=== PATIENT | female | born 1965 | race Caucasian/White ===

== ENCOUNTER 2018-05-29 15:08 | Emergency (ER) | payer BC ==
[~2018-05-29] VITALS: Ht 172.7 cm; Wt 92.7 kg
[~2018-05-29 15:08] MED LIST: BUSPIRONE HCL7.5 MG PO; DESERYL100 MG PO; LEVSIN/ANASP0.125 MG PO; PEPCID40 MG PO; PERMETHRIN60 GM TOPICAL; PHENERGAN25 M1 PO; PROTONIX40 MG PO; TENORMIN50 MG PO; ZITHROMAX250 MG PO
[2018-05-29 15:09] VITALS: Ht 172.7 cm; Wt 92.7 kg
[2018-05-29 15:42] LABS: APPEARANCE CLEAR (CLEAR); BILIRUBIN NEGATIVE (NEGATIVE); COLOR YELLOW (YELLOW); GLUCOSE NEGATIVE (NEGATIVE); KETONE NEGATIVE (NEGATIVE); NITRITE NEGATIVE (NEGATIVE); PROTEIN NEGATIVE (NEGATIVE); UROBILINOGEN NORMAL (NORMAL)
[2018-05-29 15:44] LABS: BACTERIA MODERATE /hpf (NONE SEEN); EPITHELIAL CELLS 0-5 /hpf (0-5); RED CELLS - URINE 0-5 /hpf (0-5); WHITE CELLS - URINE 0-5 /hpf (0-5)
[2018-05-29 15:54] LABS: BASOPHILS 0.4 % (0-2); EOSINOPHILS 1.6 % (0-7); HEMATOCRIT 36.7 % (36.0-48.0); HEMOGLOBIN 12.1 g/dL (12-16); IMMATURE GRANULOCYTES 0.3 % (0-5); LYMPHOCYTES 40.1 % (15-50); MCH 29.4 pg (26.0-34.0); MCV 89.3 fL (80.0-100.0); MEAN PLATELET VOLUME 9.2 fL (7.4-10.4); MONOCYTES 8.1 % (2-11); NEUTROPHILS 49.5 % (40-80); PLATELET COUNT 286 10x3/uL (130-400); RBC 4.11 10x6/uL (4.00-5.40); RDW 13.5 % (11.5-14.5); WBC 6.8 10x3/uL (4.8-10.8)
[2018-05-29 16:07] LABS: ALBUMIN 3.8 g/dL (3.4-5.0); ALKALINE PHOSPHATASE 83 U/L (46-116); ALT (SGPT) 30 U/L (10-68); AMYLASE - SERUM 88 U/L (25-115); CALC OSMOLALITY 288 mosm/kg (275-300); CALCIUM 8.8 mg/dL (8.5-10.1); CHLORIDE - SERUM 106 mmol/L (98-107); CREATININE - SERUM 0.7 mg/dL (0.6-1.3); GLUCOSE 96 mg/dL (74-106); LIPASE 239 U/L (73-393); POTASSIUM - SERUM 3.7 mmol/L (3.5-5.1); PROTEIN - SERUM 7.7 g/dL (6.4-8.2); SODIUM 144 mmol/L (136-145); UREA NITROGEN 19 mg/dL (7-18); eGFR NON AFRICAN AMERICAN > 90 mL/min (90-120)
[2018-05-29 19:47] VITALS: BP 144/85
== END 2018-05-29 19:48 | disposition home or self-care (01) ==
LOC: D.ER 15:08
PROVIDERS: Family Medicine
DX: R10.9 Unspecified abdominal pain (principal); N94.89 Other specified conditions associated with female genital organs and menstrual cycle

== ENCOUNTER → 2018-06-07 16:00 | Outpatient (CLI) | payer BC ==
[2018-05-29 15:09] VITALS: BMI 31.0
== END | disposition home or self-care (01) ==
LOC: D.US 16:00
DX: R10.11 Right upper quadrant pain (principal)

== ENCOUNTER → 2019-02-15 13:09 | Outpatient (CLI) | payer BC ==
[2018-05-29 15:09] VITALS: BMI 31.0
[2019-02-15 15:24] LABS: ALBUMIN 4.1 g/dL (3.4-5.0); ALKALINE PHOSPHATASE 103 U/L (46-116); ALT (SGPT) 47 U/L (10-68); BILIRUBIN - TOTAL 0.32 mg/dL (0.2-1.3); C-REACTIVE PROTEIN 0.5 mg/dL (0.0-0.9); CALC OSMOLALITY 289 mosm/kg (275-300); CALCIUM 9.1 mg/dL (8.5-10.1); CARBON DIOXIDE 33.1 mmol/L (21.0-32.0); CHLORIDE - SERUM 105 mmol/L (98-107); CREATININE - SERUM 0.7 mg/dL (0.6-1.3); GLUCOSE 91 mg/dL (74-106); PROTEIN - SERUM 8.2 g/dL (6.4-8.2); SODIUM 145 mmol/L (136-145); T4 THYROXINE 10.8 ug/dL (4.7-13.3); THYROID STIMULATING HORMONE 0.68 uIU/mL (0.36-3.74); UREA NITROGEN 16 mg/dL (7-18); eGFR NON AFRICAN AMERICAN > 90 mL/min (90-120)
[2019-02-15 15:44] LABS: ERYTHROCYTE SEDIMENTATION RATE 67 mm/hr (0-30)
[2019-02-16 09:10] LABS: ANTI-STREPTOLYSIN O 41.7 IU/mL (0.0-200.0)
[2019-02-16 13:10] LABS: ANA REFLEX - DIRECT Negative (Negative)
== END | disposition home or self-care (01) ==
LOC: D.LAB 13:09
PROVIDERS: ATTEND Family Medicine
DX: R07.9 Chest pain, unspecified (principal); M25.50 Pain in unspecified joint; R53.83 Other fatigue

== ENCOUNTER 2019-08-10 16:22 | Observation (INO) | payer BC ==
[~2019-08-10] VITALS: Ht 172.7 cm; Wt 97.7 kg
[2019-08-10 17:14] VITALS: BP 130/67
[2019-08-10 17:15] LABS: BILIRUBIN NEGATIVE (NEGATIVE); GLUCOSE NEGATIVE (NEGATIVE); KETONE NEGATIVE (NEGATIVE); NITRITE NEGATIVE (NEGATIVE); SPECIFIC GRAVITY 1.025 (1.005-1.020); UROBILINOGEN NORMAL (NORMAL)
[2019-08-10 17:19] LABS: BASOPHILS 0.3 % (0-2); HEMATOCRIT 37.9 % (36.0-48.0); HEMOGLOBIN 12.1 g/dL (12-16); IMMATURE GRANULOCYTES 0.1 % (0-5); LYMPHOCYTES 40.5 % (15-50); MCH 28.6 pg (26.0-34.0); MCHC 31.9 g/dL (31.0-37.0); MCV 89.6 fL (80.0-100.0); MEAN PLATELET VOLUME 8.9 fL (7.4-10.4); MONOCYTES 8.2 % (2-11); NEUTROPHILS 48.9 % (40-80); PLATELET COUNT 286 10x3/uL (130-400); RBC 4.23 10x6/uL (4.00-5.40); RDW 13.6 % (11.5-14.5)
[2019-08-10 17:59] LABS: ERYTHROCYTE SEDIMENTATION RATE 8 mm/hr (0-30)
[2019-08-10 18:24] LABS: CALC OSMOLALITY 286 mosm/kg (275-300); CALCIUM 8.9 mg/dL (8.5-10.1); CARBON DIOXIDE 26.4 mmol/L (21.0-32.0); CHLORIDE - SERUM 104 mmol/L (98-107); CREATININE - SERUM 0.8 mg/dL (0.6-1.3); GLUCOSE 132 mg/dL (74-106); POTASSIUM - SERUM 3.7 mmol/L (3.5-5.1); SODIUM 143 mmol/L (136-145); UREA NITROGEN 13 mg/dL (7-18); eGFR NON AFRICAN AMERICAN 79 mL/min (90-120)
[2019-08-10 18:26] VITALS: BP 126/75
[2019-08-10 18:31] LABS: ALBUMIN 3.9 g/dL (3.4-5.0); ALKALINE PHOSPHATASE 96 U/L (30-120); ALT (SGPT) 54 U/L (10-68); BILIRUBIN - TOTAL 0.32 mg/dL (0.2-1.3); PROTEIN - SERUM 7.9 g/dL (6.4-8.2)
[2019-08-10 18:42] LABS: C-REACTIVE PROTEIN 1.1 mg/dL (0.0-0.9); CKMB 0.5 U/L (0.0-3.6); CREATINE KINASE 64 UL (21-215); LIPASE 171 U/L (73-393); MAGNESIUM - SERUM 1.9 mg/dL (1.8-2.4); THYROID STIMULATING HORMONE 0.53 uIU/mL (0.36-3.74)
[2019-08-10 18:43] LABS: TROPONIN-I < 0.017 ng/mL (0.000-0.060)
--- NOTE | 2019-08-10 19:27 | NUR ---
REPORT TO JACOB LEPE
--- NOTE | 2019-08-10 19:30 | NUR ---
PT OBSERVED AMBULATING TO BR WITH STABLE GAIT. DENIES FURTHER NEEDS.
[2019-08-10 20:00] VITALS: BP 151/68
[2019-08-10 22:34] VITALS: Ht 172.7 cm; Wt 97.7 kg
[2019-08-11] VITALS: BP 122/59
[2019-08-11 04:00] VITALS: BP 109/44
--- NOTE | 2019-08-11 04:15 | NUR ---
RESTING WITH EYES CLOSED, RESPERATIONS EVEN, NO S/S DISTRESS NOTED.
[2019-08-11 05:57] LABS: BASOPHILS 0.5 % (0-2); EOSINOPHILS 2.6 % (0-7); HEMATOCRIT 37.4 % (36.0-48.0); HEMOGLOBIN 11.6 g/dL (12-16); LYMPHOCYTES 47.3 % (15-50); MCH 28.2 pg (26.0-34.0); MCV 90.8 fL (80.0-100.0); MEAN PLATELET VOLUME 9.2 fL (7.4-10.4); MONOCYTES 8.3 % (2-11); NEUTROPHILS 41.3 % (40-80); PLATELET COUNT 277 10x3/uL (130-400); RBC 4.12 10x6/uL (4.00-5.40); RDW 13.8 % (11.5-14.5); WBC 5.8 10x3/uL (4.8-10.8)
[2019-08-11 06:25] LABS: APTT 27.4 SECONDS (22.8-39.4); INR 0.98 (0.85-1.17); PROTIME 12.9 SECONDS (11.6-15.0)
[2019-08-11 06:40] LABS: ALBUMIN 3.5 g/dL (3.4-5.0); ALKALINE PHOSPHATASE 89 U/L (30-120); ALT (SGPT) 52 U/L (10-68); BILIRUBIN - TOTAL 0.27 mg/dL (0.2-1.3); CALC OSMOLALITY 285 mosm/kg (275-300); CALCIUM 8.5 mg/dL (8.5-10.1); CARBON DIOXIDE 25.9 mmol/L (21.0-32.0); CHLORIDE - SERUM 108 mmol/L (98-107); CKMB 0.3 U/L (0.0-3.6); CREATINE KINASE 43 UL (21-215); CREATININE - SERUM 0.7 mg/dL (0.6-1.3); GLUCOSE 101 mg/dL (74-106); MAGNESIUM - SERUM 1.9 mg/dL (1.8-2.4); PHOSPHOROUS 3.7 mg/dL (2.5-4.9); POTASSIUM - SERUM 3.9 mmol/L (3.5-5.1); PRO BNP 53 pg/mL (0-125); PROTEIN - SERUM 6.7 g/dL (6.4-8.2); SODIUM 144 mmol/L (136-145); THYROID STIMULATING HORMONE 1.73 uIU/mL (0.36-3.74); UREA NITROGEN 11 mg/dL (7-18); eGFR NON AFRICAN AMERICAN > 90 mL/min (90-120)
[2019-08-11 06:41] LABS: TROPONIN-I < 0.017 ng/mL (0.000-0.060)
--- NOTE | 2019-08-11 07:10 | NUR ---
REPORT RECEIVED FROM TIME CLOCK REPAIRER AND PATIENT CARE ASSUMED. PATIENT LAYING IN BED ON BACK AWAKE, ALERT AND ORIENTED X 4. PATIENT DENIES ANY NEEDS OR PAIN. WILL CONTINUE WITH PLAN OF CARE. SR UP X 2 BED IN LOW POSITION AND CALL LIGHT IN REACH.
[2019-08-11 08:36] VITALS: BP 141/73
[2019-08-11 13:18] VITALS: BP 126/81
--- NOTE | 2019-08-11 16:01 | NUR ---
PER DR AVILA, PATIENT IS DCD TO HOME AND DC CONSULT TO CARDIOLOGY. CARDIOLOGY CONSULT CALLED TO DR HEATH. SPOKE WITH DR HEATH TO DC CONSULT. HE VERBALIZED UNDERSTANDING.
== END 2019-08-11 16:30 | disposition home or self-care (01) ==
LOC: D.ER 16:22 → D.M2 19:09 → OBSVTIME 19:09 → D.M2 08-11 16:30
PROVIDERS: Family Medicine; ADMIT Internal Medicine Nephrology; ATTEND Internal Medicine Nephrology
DX: R07.9 Chest pain, unspecified (principal); K21.9 Gastro-esophageal reflux disease without esophagitis; F41.9 Anxiety disorder, unspecified

== ENCOUNTER → 2019-11-09 14:41 | Outpatient (CLI) | payer BC ==
[2019-08-10 22:34] VITALS: BMI 32.7
== END | disposition home or self-care (01) ==
LOC: D.MRI 14:41
PROVIDERS: ATTEND Orthopaedic Surgery
DX: R22.43 Localized swelling, mass and lump, lower limb, bilateral (principal)

== ENCOUNTER → 2020-01-09 13:40 | Outpatient (CLI) | payer BC ==
[2019-08-10 22:34] VITALS: BMI 32.7
== END | disposition home or self-care (01) ==
LOC: D.CT 13:40
PROVIDERS: ATTEND Obstetrics & Gynecology
DX: R10.2 Pelvic and perineal pain (principal)